=== PATIENT | male | born 1975 | race African-American/Black ===

== ENCOUNTER 2016-10-08 12:25 | Inpatient (IN) | payer BC ==
--- NOTE | ~2016-10-08 | DS ---
Discharge Summary [facility] [address] [facility] [place]. [address] NAME: ZHANG WINSLOW : 79 STATUS : DIS IN PAT#: [id number] AGE: 41 ADM/REG DATE : 10/08/16 MR#: [id number] REPORT SERV DATE: 10/11/16 DICTATED BY: MANSOOR CHOW DATE: 10/10/16 REPORT STATUS : Draft TRANSCRIBED BY: MODL DATE: 10/10/16 ADMISSION DATE: 10/08/2016 DISCHARGE DATE: 10/10/2016 CONDITION ON DISCHARGE: Stable. DISPOSITION: Discharged to home. DIAGNOSES ON DISCHARGE: 1. Acute exacerbation of systolic and diastolic heart failure-resolved. 2. Chronic systolic and diastolic heart failure from dilated cardiomyopathy with an ejection fraction of 35% which was chronic. 3. Elevated troponin likely because of demand ischemia, now trending down and almost back to normal-the patient is asymptomatic. 4. Chronic kidney disease, stage 3 with baseline creatinine about 1.8 to 2 which is also chronic. CONSULTS OBTAINED DURING HOSPITALIZATION: Cardiology consult. BRIEF HOSPITAL COURSE: The patient is a pleasant 41-year-old male patient who has been diagnosed with dilated cardiomyopathy with the ejection fraction that was as low as 15% to 20% that improved eventually to 35%, who came in on 10/08/2016, with acute shortness of breath and chest pressure. For details, please see my history and physical exam. Essentially, the patient was admitted with [id number] systolic and diastolic heart failure and started on diuretics and BiDil. Cardiology was consulted. The patient also complained of some chest pressure when he was admitted and there was also elevated troponin that was found likely demand related. Hence, the patient was started on IV heparin. IV heparin was subsequently discontinued by Cardiology when the patient was asymptomatic and his troponin started trending down. No cardiac cath was planned at this time. The patient also had a creatinine of 2 probably because of cardiorenal syndrome at this time. The patient's baseline creatinine was around 1.7, and the patient does have chronic kidney disease, stage 3. The patient also has severe hypertension, for which the patient's home medications were continued. In addition to this, the patient had had a dental abscess for which he was on amoxicillin. The patient was given Augmentin twice a day for this. Upon discharge, the patient is advised to continue his amoxicillin. So, he improved and his breathing is better and he is completely asymptomatic and requests to go home today, 10/10/2016. Cardiology has evaluated him and advised that he go home and he follow up with Dr. Martinez on 10/28/2016. The patient has agreed to do that and has agreed to comply. Hence, he is being sent home on amoxicillin 500 mg p.o. t.i.d. for seven more days, Coreg 25 mg p.o. b.i.d., Lasix 40 mg p.o. daily, and Lasix 20 mg p.o. at bedtime. The patient will also continue BiDil 20/37.5 mg one tablet p.o. three times a day, potassium 10 mEq twice a day, Catapres 0.1 mg p.o. b.i.d., and also continue Trulicity 1.5 mg subcutaneously once weekly. The patient will also be given a prescription for Lantus insulin for him to take daily subcutaneously. The patient will be on 10 units of Lantus subcutaneously every day. He was also noted and the nurse pointed out to me that the Discharge Summary [place] [id number] [facility] [place]. [address] NAME: ZHANG WINSLOW : 79 STATUS : DIS IN PAT#: [id number] AGE: 41 ADM/REG DATE : 10/08/16 MR#: [id number] REPORT SERV DATE: 10/11/16 DICTATED BY: MANSOOR CHOW DATE: 10/10/16 REPORT STATUS : Draft TRANSCRIBED BY: REINALDO DATE: 10/10/16 patient did not have any glucometer with him at home. Hence, I am also giving him a prescription for glucometer with the glucose strips #100 to be used with the glucometer. Hence, the patient is being sent home in stable condition with advice to follow up with PCP within the next one week for diabetes and follow up with Dr. Martinez in one month to be precise dated 10/28/2016. The most recent labs that I have on this patient upon discharge include the following. On the day of discharge, his WBC count is 7.4, hemoglobin 12.3, hematocrit is 36.2, and platelet count of 257. His BUN is 30, creatinine is 2. His baseline BNP is about 358.1 and this was pretty much his baseline at this time. Echocardiogram shows an EF of 35% from dilated cardiomyopathy as described and dictated before. I have spent about 35 minutes to 40 minutes in coordinating discharge care of this patient including [id number] encounter and summarizing this discharge. POLI/REINALDO Mansoor Chow M.D. / [id number] CC: Mansoor Chow M.D. UNKNOWN
--- NOTE | ~2016-10-08 | CN ---
Consultation Report [address] [place]. [address] NAME: ZHANG WINSLOW : 79 STATUS : ADM IN PAT#: [id number] AGE: 41 ADM/REG DATE : 10/08/16 MR#: [id number] REPORT SERV DATE: 10/09/16 DICTATED BY: AMELIA LEES DATE: 10/08/16 REPORT STATUS : Draft TRANSCRIBED BY: MODCesar DATE: 10/08/16 CARDIOLOGY CONSULTATION NOTE. DATE OF CONSULTATION: HISTORY OF PRESENT ILLNESS: This severely hypertensive 41-year-old black male was admitted with increasing shortness of breath over the last three days. He works at [employer] and does have some increase sodium in his diet. He has history of moderate renal insufficiency; his BUN and creatinine today are 20 and 1.62 mg percent respectively. FAMILY HISTORY: He has a family history positive for heart disease. PAST SURGICAL HISTORY: He has had no major operative procedures. ALLERGIES: HE IS INTOLERANT TO IODINE. SOCIAL HISTORY: This man is and works at [employer], and has two healthy daughters. PAST MEDICAL HISTORY: He denies typical angina pectoris, but his troponin is mildly elevated. This may be a demand type ischemia event with severe hypertension and congestive heart failure. MEDICATIONS: Medications at home have included ampicillin, carvedilol, clonidine, Trulicity, furosemide, BiDil, and take Klor-Con. He has had a recent problem with tooth abscess for which he is using Augmentin therapy. REVIEW OF SYSTEMS: Otherwise all negative. PHYSICAL EXAMINATION: VITAL SIGNS: Blood pressure is now 170/100. HEENT: Head is normocephalic. Eyes, PERRLA. Nose had no epistaxis. SKIN: Clear of ulceration. NECK: Supple. CHEST: Clear. HEART: Regular rhythm. Normal S1 and S2. There is an S3 gallop heard at the apex that is prominent. No murmurs are appreciated. ABDOMEN: No hepatosplenomegaly or abnormal masses. He is mildly overweight. EXTREMITIES: No clubbing, edema, or cyanosis. NEUROLOGIC: Intact. He is oriented to time, place, and person. CLINICAL IMPRESSION: 1. Severe hypertension. Consultation Report [address] [place]. [address] NAME: ZHANG WINSLOW : 79 STATUS : ADM IN PAT#: [id number] AGE: 41 ADM/REG DATE : 10/08/16 MR#: [id number] REPORT SERV DATE: 10/09/16 DICTATED BY: AMELIA LEES DATE: 10/08/16 REPORT STATUS : Draft TRANSCRIBED BY: REINALDO DATE: 10/08/16 2. Congestive heart failure probably secondary to severe hypertension. 3. Probable demand ischemia with mild troponin elevation. 4. Type 2 diabetes mellitus. 5. Iodine sensitivity. RECOMMENDATIONS: 1. He is on proper therapy at this time and is diuresing. 2. Follow his blood pressure and check serial troponins. 3. Dr. Martinez will continue to follow him when she returns to call. RB/REINALDO elia Lees M.D. / [id number] CC: Sujey Edouard M.D.
--- NOTE | ~2016-10-08 | HP ---
History And Physical [place] [address] [facility] [place]. [address] NAME: ZHANG WINSLOW : 79 STATUS : ADM IN [facility]#: [id number] AGE: 41 ADM/REG DATE : 10/08/16 MR#: [id number] REPORT SERV DATE: 10/09/16 DICTATED BY: MANSOOR CHOW DATE: 10/08/16 REPORT STATUS : Draft TRANSCRIBED BY: MODCesar DATE: 10/08/16 DATE OF ADMISSION: 10/08/2016 HISTORY OF PRESENT ILLNESS: Mr. Winslow is a 41-year-old male patient who presented today because of chest pressure and increasing shortness of breath for the last day or so. The patient also describes nausea, but no vomiting. The patient has a known history of congestive heart failure and Dr. Zamora is his social research assistant. The patient also states that he has severe hypertension and is on several medications for the blood pressure control and also for CHF. The patient also has diabetes for which he takes Trulicity shots once a week. He says that yesterday his tooth began hurting and he went to the dentist for that. He was prescribed an antibiotic and also some pain medications for that and the dentist did not perform any tooth extraction because his blood pressure was found to be too high. The patient came back home, and after he came home, he experienced some chest pressure. He also had some increasing difficulty breathing, but he thought that it would go away once he rested. But he said that he had a sleepless night all night last night because of the tooth pain and also because of some chest pressure and increasing difficulty breathing. This morning when his breathing worsened and his chest pressure did not go away, he decided to come into the ER. He does not describe typical chest pain, but does describe discomfort in the center of the chest that feels like pressure. At this time, the patient states that he has absolutely no pain because he has been given medications in the ER. When I examined the patient at bedside, he appears to be comfortable and is able to give me his history himself. REVIEW OF SYSTEMS: As above. The patient denies any vomiting, abdominal pain, dysuria, hematuria, constipation, blood in stool, or headache, etc. PAST MEDICAL HISTORY: Positive for hypertension, congestive heart failure, diabetes mellitus, and dyslipidemia. SOCIAL HISTORY: The patient does not smoke. He denies any alcohol use, denies any illegal drug use. The patient is not currently, but has a girlfriend. The patient also has two daughters. 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 FAMILY HISTORY: Positive for diabetes and hypertension, but there is no cardiac history in either of the parents. ALLERGIES: THE PATIENT HAS NO KNOWN DRUG ALLERGIES. MEDICATIONS: His home medications that he takes on a regular basis include the following. He takes Coreg 25 mg p.o. b.i.d., potassium 10 mEq p.o. b.i.d., BiDil or a combination of isosorbide dinitrate and hydralazine 20/37.5 one tablet p.o. three times a day, clonidine 0.1 mg p.o. b.i.d., Lasix 40 mg in the morning and 20 mg at night, and Trulicity subcutaneously once a week. Currently, the patient has also been given a prescription for amoxicillin by his dentist and Tylenol with some codeine also by his dentist. History And Physical [address] [address] NAME: ZHANG WINSLOW : 79 STATUS : ADM IN [facility]#: [id number] AGE: 41 ADM/REG DATE : 10/08/16 MR#: [id number] REPORT SERV DATE: 10/09/16 DICTATED BY: MANSOOR CHOW DATE: 10/08/16 REPORT STATUS : Draft TRANSCRIBED BY: REINALDO DATE: 10/08/16 PHYSICAL EXAMINATION: GENERAL: The patient is alert, awake, and oriented. He is comfortable appearing, well built, and slightly obese black male patient, in no apparent distress. Skin and mucous membranes appear well hydrated. VITAL SIGNS: Show that his blood pressure is 176/124, temperature is afebrile, pulse 107, SpO2 is 95% on room air. HEENT: Unremarkable. There is no facial droop. There is no facial asymmetry. There is no JVD. No thyromegaly. CARDIOVASCULAR SYSTEM: S1, S2 appreciated. Loud S1 noted. There are no murmurs, rubs, or gallops appreciated at this time. RESPIRATORY SYSTEM: Clear lungs. No rales or rhonchi noted. Good lung expansion noted. ABDOMEN: Soft, obese, nontender. No hepatosplenomegaly, no organomegaly noted. Bowel sounds appreciated. EXTREMITIES: There is no pedal edema. Pedal pulses are well felt. NEUROLOGIC: Normal. MUSCULOSKELETAL: Normal. PSYCHIATRIC: Normal affect. LABORATORY DATA: I have on this patient include a CBC that shows a normal CBC essentially. BMP shows a mildly elevated creatinine at 1.6. Troponin I is elevated at 0.2. His brain natriuretic peptide is also elevated at 463. CTA of the chest that was done in the beginning when he came in with shortness of breath is negative for PE. Chest x-ray shows cardiomegaly, but clear lungs. Strep screen is negative. Urine drug screen is positive for opiates only from the recent medications that he has been taking for his toothache. Troponin I is again elevated and a repeat troponin also has come back elevated at 0.17. ASSESSMENT: My assessment on this patient is: 1. Chest pain/pressure with increasing shortness of breath in a patient with risk factors that include severe hypertension and a known history of congestive heart failure. Hence, we need to rule out the possibility of acute coronary syndrome. Hence, we will consult Cardiology and start this patient on IV heparin drip per cardiac protocol. Currently, the patient is chest pain-free. Hence, we will only keep him on p.r.n. medications for chest pain, namely Dilaudid 1 mg IV q.2-4 hours p.r.n. 2. We will keep the patient on supplemental oxygen and continue his home medications. 3. Exacerbation of congestive heart failure. For this, we will increase his home Lasix to 40 mg twice a day. We will continue the rest of the medications. 4. Uncontrolled blood pressure. For this, we will again resume his home medications and hopefully ensure compliance while he is in the hospital. He is on multiple medications including Coreg, clonidine, BiDil which should all be good enough to get his blood pressure under control. The blood pressure reading has already been coming down and it is around 156/96 now currently. 5. Regarding his acute kidney injury-we will go ahead and start him on IV Ringer's lactate at 50 mL an hour only at this time. We will be very careful in giving him fluids as even though he does not seem to be in florid congestive heart failure, he does have a History And Physical [address] [place]. [address] NAME: ZHANG WINSLOW : 79 STATUS : ADM IN PAT#: [id number] AGE: 41 ADM/REG DATE : 10/08/16 MR#: [id number] REPORT SERV DATE: 10/09/16 DICTATED BY: MANSOOR CHOW DATE: 10/08/16 REPORT STATUS : Draft TRANSCRIBED BY: MODL DATE: 10/08/16 history and he does have an elevated BNP. Upon noting his previous brain natriuretic peptide it has been as high as 700, but it appears that his baseline itself is around 200 to 300. 6. We will consult Cardiology and this patient may need cardiac catheterization. However, since his creatinine is elevated, Cardiology may want to wait on this, it is up to social research assistant discretion on this. 7. We will get a 2D echocardiogram on the patient to assess his left ventricular function status at this time. We will follow this patient and admit him to [address] [place] [address] [place] [address] on cardiac telemetry. POLI/REINALDO Mansoor Chow M.D. / [id number] CC: Mansoor Chow M.D.
[~2016-10-08 12:25] MED LIST: HCTZ25B PO; LOP25 PO; UNK HTN MED PO
[2016-10-08 12:27] LABS: BASOPHILS 0.1 %; BASOPHILS ABSOLUTE 0.01 10/3/uL (0.0-0.16); EOSINOPHILS 0.7 %; EOSINOPHILS ABSOLUTE 0.07 10/3/uL (0.0-0.53); ER CBC TAT 0 Hrs 05 Mins; HEMATOCRIT 38.9 % (40.0-51.0); HEMOGLOBIN 13.7 g/dL (13.6-17.8); IMMATURE GRANULOCYTES 0.2 %; IMMATURE GRANULOCYTES ABSOLUTE 0.02 10/3/uL (0.0-0.11); LYMPHOCYTES 10.6 %; LYMPHOCYTES ABSOLUTE 1.02 10/3/uL (0.67-4.30); MANUAL DIFF NO %; MEAN CORPUS HGB CONC 35.2 g/dL (32.0-36.0); MEAN CORPUSCULAR HEMOGLOB 30.9 pg (26.0-34.0); MEAN CORPUSCULAR VOLUME 87.6 fL (80-100); MEAN PLATELET VOLUME 10.4 fL (9.2-13.0); MONOCYTES 2.9 %; MONOCYTES ABSOLUTE 0.28 10/3/uL (0.21-1.20); NEUTROPHILS 85.5 %; NEUTROPHILS ABSOLUTE 8.21 10/3/uL (2.02-8.40); PLATELET COUNT 268 10/3/uL (150-400); RBC DISTRIBUTION WIDTH 13.4 % (12.0-16.0); RED CELL COUNT 4.44 10/6/uL (4.7-6.1); WHITE BLOOD CELLS 9.6 10/3/uL (4.5-10.5)
[2016-10-08 12:34] LABS: INTERNATIONAL NORMAL RATI 1.1 UNITS (-); PROTIME (NOT ORD) 13.9 SEC (12.0-14.5)
[2016-10-08 12:37] LABS: D-DIMER QUANTITATIVE 0.68 ug/mLFEU (< 0.50)
[2016-10-08 12:45] LABS: CALCIUM, SERUM 8.8 MG/DL (8.5-10.4); CHLORIDE, SERUM 109 MMOL/L (96-112); CO2 (CARBON DIOXIDE) 26 MMOL/L (24-34); CREATININE 1.62 MG/DL (0.70-1.30); GFR AFRICAN AMERICAN 61 ML/MIN (>=60); GFR NON AFRICAN AMERICAN 53 ML/MIN (>=60); POTASSIUM, SERUM 3.6 MMOL/L (3.5-5.3); SODIUM, SERUM 143 MMOL/L (135-148)
[2016-10-08 12:47] LABS: BUN (BLOOD UREA NITROGEN) 20 MG/DL (6-23); CHEST PAIN PROFILE TAT 0 Hrs 25 Mins; GLUCOSE, SERUM 161 MG/DL (60-99)
[2016-10-08] MEDS ORDERED: COREG25 PO (13:29)
[2016-10-08] MEDS ORDERED: AMOXIL500C PO (13:29)
[2016-10-08] MEDS ORDERED: L20 PO (13:30)
[2016-10-08] MEDS ORDERED: L40 PO (13:30)
[2016-10-08] MEDS ORDERED: CAT1 PO (13:30)
[2016-10-08] MEDS ORDERED: BIDIL20/37 PO (13:30)
[2016-10-08] MEDS ORDERED: KLOR-CON 1010 MEQ PO (13:30)
[2016-10-08] MEDS ORDERED: TRULICITY1.5 MG/0.5 SQ (13:37)
[2016-10-08 17:42] LABS: AMPHETAMINES (NOT ORD) NEG (NEG); BARBITURATES (NOT ORDERED NEG (NEG); BENZODIAZEPINES (NOT ORD) NEG (NEG); CANNABINOIDS (THC) NEG (NEG); COCAINE (NOT ORDERED) NEG (NEG); OPIATES POS (NEG); PHENCYCLIDINE(PCP) NEG (NEG); TRICYCLICS NEG (NEG)
[2016-10-09 01:53] LABS: BASOPHILS 0.1 %; BASOPHILS ABSOLUTE 0.01 10/3/uL (0.0-0.16); EOSINOPHILS 0 %; HEMATOCRIT 38.2 % (40.0-51.0); HEMOGLOBIN 13.5 g/dL (13.6-17.8); IMMATURE GRANULOCYTES 0.2 %; IMMATURE GRANULOCYTES ABSOLUTE 0.02 10/3/uL (0.0-0.11); LYMPHOCYTES 6.2 %; LYMPHOCYTES ABSOLUTE 0.59 10/3/uL (0.67-4.30); MEAN CORPUS HGB CONC 35.3 g/dL (32.0-36.0); MEAN CORPUSCULAR VOLUME 87.8 fL (80-100); MEAN PLATELET VOLUME 10.8 fL (9.2-13.0); MONOCYTES 0.7 %; MONOCYTES ABSOLUTE 0.07 10/3/uL (0.21-1.20); NEUTROPHILS 92.8 %; NEUTROPHILS ABSOLUTE 8.89 10/3/uL (2.02-8.40); PLATELET COUNT 272 10/3/uL (150-400); RBC DISTRIBUTION WIDTH 13.4 % (12.0-16.0); RED CELL COUNT 4.35 10/6/uL (4.7-6.1); WHITE BLOOD CELLS 9.6 10/3/uL (4.5-10.5)
[2016-10-09 01:54] LABS: MANUAL DIFF NO %
[2016-10-09 02:05] LABS: BUN (BLOOD UREA NITROGEN) 24 MG/DL (6-23); CALCIUM, SERUM 8.8 MG/DL (8.5-10.4); CHLORIDE, SERUM 104 MMOL/L (96-112); CO2 (CARBON DIOXIDE) 25 MMOL/L (24-34); GFR AFRICAN AMERICAN 47 ML/MIN (>=60); GFR NON AFRICAN AMERICAN 41 ML/MIN (>=60); GLUCOSE, SERUM 289 MG/DL (60-99); POTASSIUM, SERUM 3.8 MMOL/L (3.5-5.3); SODIUM, SERUM 139 MMOL/L (135-148)
[2016-10-09 06:41] LABS: TROPONIN I 0.1 NG/ML (<0.05)
[2016-10-09] MEDS ORDERED: T3 PO (15:45)
[2016-10-10 04:46] LABS: BASOPHILS 0.1 %; BASOPHILS ABSOLUTE 0.01 10/3/uL (0.0-0.16); EOSINOPHILS 0.5 %; EOSINOPHILS ABSOLUTE 0.04 10/3/uL (0.0-0.53); HEMATOCRIT 36.2 % (40.0-51.0); HEMOGLOBIN 12.3 g/dL (13.6-17.8); IMMATURE GRANULOCYTES 0.3 %; IMMATURE GRANULOCYTES ABSOLUTE 0.02 10/3/uL (0.0-0.11); LYMPHOCYTES 22.3 %; LYMPHOCYTES ABSOLUTE 1.64 10/3/uL (0.67-4.30); MEAN CORPUSCULAR HEMOGLOB 30.4 pg (26.0-34.0); MEAN CORPUSCULAR VOLUME 89.6 fL (80-100); MEAN PLATELET VOLUME 10.8 fL (9.2-13.0); MONOCYTES 6.5 %; MONOCYTES ABSOLUTE 0.48 10/3/uL (0.21-1.20); NEUTROPHILS 70.3 %; NEUTROPHILS ABSOLUTE 5.18 10/3/uL (2.02-8.40); PLATELET COUNT 257 10/3/uL (150-400); RBC DISTRIBUTION WIDTH 13.6 % (12.0-16.0); RED CELL COUNT 4.04 10/6/uL (4.7-6.1); WHITE BLOOD CELLS 7.4 10/3/uL (4.5-10.5)
[2016-10-10 04:54] LABS: MANUAL DIFF NO %
[2016-10-10 05:19] LABS: CALCIUM, SERUM 9.2 MG/DL (8.5-10.4); CHLORIDE, SERUM 106 MMOL/L (96-112); CO2 (CARBON DIOXIDE) 29 MMOL/L (24-34); GFR AFRICAN AMERICAN 47 ML/MIN (>=60); GFR NON AFRICAN AMERICAN 41 ML/MIN (>=60); POTASSIUM, SERUM 3.8 MMOL/L (3.5-5.3); SODIUM, SERUM 144 MMOL/L (135-148)
[2016-10-10 05:40] LABS: BUN (BLOOD UREA NITROGEN) 30 MG/DL (6-23); GLUCOSE, SERUM 227 MG/DL (60-99)
[2016-10-10] MEDS ORDERED: NORCO1 TA1 PO (17:27)
[2016-10-10] MEDS ORDERED: LANTUSCART SC (17:29)
== END 2016-10-10 18:56 | disposition home or self-care (01) | DRG 291 ==
LOC: ER 12:25 → 7NO 18:12
PROVIDERS: Emergency Medicine
DX: I13.0 Hypertensive heart and chronic kidney disease with heart failure and stage 1 through stage 4 chronic kidney disease, or unspecified chronic kidney disease (principal); I50.43 Acute on chronic combined systolic (congestive) and diastolic (congestive) heart failure; I47.2 Ventricular tachycardia; N17.9 Acute kidney failure, unspecified; I24.8 Other forms of acute ischemic heart disease; N18.3 Chronic kidney disease, stage 3 (moderate); I42.0 Dilated cardiomyopathy; E78.5 Hyperlipidemia, unspecified; E11.22 Type 2 diabetes mellitus with diabetic chronic kidney disease; N18.9 Chronic kidney disease, unspecified; K04.7 Periapical abscess without sinus; Z91.041 Radiographic dye allergy status; Z82.49 Family history of ischemic heart disease and other diseases of the circulatory system; Z83.3 Family history of diabetes mellitus
CPT/HCPCS: 71010; 71275; 80048; 80305; 82962; 83735; 83880; 84484; 85025; 85379; 85610; 85730; 87040; 87070; 87880; 93005; 93306; 96365; 96375; 99291; A9270-GY; J1170; J2405; J2543; J2930; J3475; Q9967